=== PATIENT | female | born 1995 | race Caucasian/White ===

== ENCOUNTER 2017-03-10 15:29 | Emergency (ER) | payer MEDICAID, OTHER ==
[~2017-03-10] VITALS: Ht 152.4 cm; Wt 47.6 kg
--- OUTSIDE RECORDS SUMMARY | 2017-03-10 15:36 | XMS REPORT ---
Author Author ZACKARY MORENO [facility] eClinicalWorks Address Unknown Phone Unavailable Care Team Providers Care Machine Compositor Name Role Phone ZACKARY MORENO Unavailable Allergies No Known Allergies Problems Problem Type Condition Code Onset Dates Condition Status Problem Bipolar disorder NOS 296.7 Active Problem PTSD (Posttraumatic stress disorder) (NOS) 309.81 Active Problem ASTHMA NOS 493.90 Active Problem Acne NOS 706.1 Active Medications No Known Medications Results No Known Results Summary Purpose eClinicalWorks Submission
--- OUTSIDE RECORDS SUMMARY | 2017-03-10 15:36 | XMS REPORT ---
Author ENZO Woodward Organization eClinicalWorks Address Unknown Phone Unavailable Care Team Providers Care Plant Protection Officer Name Role Phone ENZO BLANK CP Unavailable Allergies, Adverse Reactions, Alerts Substance Reaction Event Type N.K.D.A. Info Not Available Non Drug Allergy Problems Problem Type Condition ICD-9 Code Onset Dates Condition Status Assessment Rash 782.1 Active Medications Medication Code System Code Instructions Start Date End Date Status Dosage Singulair NDC 16572 10 mg orally once a day (in the evening) 1 tab (s) naltrexone NDC 77842 50 mg orally once a day 1 tab(s) albuterol NDC 75952 2.5 mg/3 mL (0.083%) inhaled every 6 hours 3 mL Symbicort NDC 66543 80 mcg-4.5 mcg/inh inhaled 2 times a day 2 puff(s) Procedures Procedure Coding System Code Date Office Visit, new pt, Level 2 CPT-4 62289 September 02, 2014 Vital Signs Date/Time: September 02, 2014 Blood Pressure Systolic 116 mm Hg Temperature 97.9 F Weight 116 lbs Oximetry 100 % Pain Scale 0 0-10 Blood Pressure Diastolic 68 mm Hg Results No Known Results Summary Purpose eClinicalWorks Submission
--- OUTSIDE RECORDS SUMMARY | 2017-03-10 15:36 | XMS REPORT ---
Author Author ZACKARY MORENO Organization eClinicalWorks Address Unknown Phone Unavailable Care Team Providers Care Flight Agent Name Role Phone ZACKARY MORENO Unavailable Allergies No Known Allergies Problems Problem Type Condition Code Onset Dates Condition Status Problem Bipolar disorder NOS 296.7 Active Problem PTSD (Posttraumatic stress disorder) (NOS) 309.81 Active Problem ASTHMA NOS 493.90 Active Problem Acne NOS 706.1 Active Medications Medication Code System Code Instructions Start Date End Date Status Dosage Plus NDC 6472 Multivitamins with Folic Acid 1 mg orally once a day October 03, 2015 1 tab(s) Results No Known Results Summary Purpose eClinicalWorks Submission
--- OUTSIDE RECORDS SUMMARY | 2017-03-10 15:37 | XMS REPORT ---
Author Author ZACKARY MORENO [facility] [place] eClinicalWorks Address Unknown Phone Unavailable Care Team Providers Care Brass Buffer Name Role Phone ZACKARY MORENO Unavailable Allergies, Adverse Reactions, Alerts Substance Reaction Event Type latex rash Non Drug Allergy Problems Problem Type Condition Code Onset Dates Condition Status Problem Bipolar disorder NOS 296.7 Active Problem PTSD (Posttraumatic stress disorder) (NOS) 309.81 Active Problem ASTHMA NOS 493.90 Active Assessment Encounter for contraceptive management, unspecified Z30.9 Active Problem Acne NOS 706.1 Active Assessment Encounter for gynecological examination (general) (routine) with abnormal findings Z01.411 Active Medications Medication Code System Code Instructions Start Date End Date Status Dosage phenytoin NDC 27981 500 mg orally as needed every 8hrs 1 tab(s) Symbicort NDC 30882 80 mcg-4.5 mcg/inh inhaled 2 times a day 2 puff(s) Singulair NDC 66450 10 mg orally once a day (in the evening) 1 tab (s) Symbicort NDC 74359 80 mcg-4.5 mcg/inh inhaled 2 times a day 2 puff(s) Ventolin HFA NDC 04490 CFC free 90 mcg/inh inhaled as needed every 4 hrs 2 puffs Tylenol Caplet Extra Strength NDC 8541 500 mg orally every 8 hours as needed for pain September 05, 2015 2 tab(s) Refresh Tears NDC 0 OTC intraocularly 1 drop Depo-Provera Contraceptive NDC 978 150 mg/mL intramuscularly once September 150 mg loratadine NDC 28546 10 mg orally once daily 1 tablet Bactrim DS NDC 4204 800 mg-160 mg orally 2 times a day September 12, 2015 1 tab(s) fluconazole NDC 51594 150 mg orally once September 12, 2015 1 tab(s) Protonix NDC 46511 20 mg orally once a day September 05, 2015 1 tab(s) Procedures Procedure Coding System Code Date Administration fee THER/PROPH/DIAG INJ, SC/IM CPT-4 69261 September 18, 2015 Prev Med, estab pt, 18-39 yr CPT-4 34753 September 18, 2015 Depo Provera CPT-4 J1050 September 18, 2015 Vital Signs Date/Time: September 18, 2015 BMI 25.88 Index Weight 137 lbs Height 61 in Pain Scale 0 0-10 Blood Pressure Diastolic 70 mm Hg Blood Pressure Systolic 118 mm Hg Results No Known Results Summary Purpose eClinicalWorks Submission
--- OUTSIDE RECORDS SUMMARY | 2017-03-10 15:37 | XMS REPORT ---
Author Author DEEPA ENGEL Organization eClinicalWorks Address Unknown Phone Unavailable Care Team Providers Care Air Intercept Controller Name Role Phone DEEPA ENGEL CP Unavailable Allergies, Adverse Reactions, Alerts Substance Reaction Event Type N.K.D.A. Info Not Available Non Drug Allergy Problems Problem Type Condition Code Onset Dates Condition Status Assessment Hidradenitis 705.83 Active Assessment Abscess of axilla 682.3 Active Problem ASTHMA NOS 493.90 Active Medications Medication Code System Code Instructions Start Date End Date Status Dosage naltrexone NDC 02268 50 mg orally once a day 1 tab(s) albuterol NDC 19726 2.5 mg/3 mL (0.083%) inhaled every 6 hours 3 mL Ventolin HFA NDC 56186 not defined lamotrigine NDC 60005 not defined Singulair NDC 50425 10 mg orally once a day (in the evening) 1 tab (s) Symbicort NDC 15783 80 mcg-4.5 mcg/inh inhaled 2 times a day 2 puff(s) clindamycin topical NDC 59610 not defined loratadine NDC 88019 not defined Bactrim DS NDC 4204 800 mg-160 mg orally 2 times a day September 13, 2014 1 tab(s) mupirocin topical NDC 51823 2% intranasally 2 times a day September 13, 2014 1 derick Procedures Procedure Coding System Code Date Abscess I&D/Cyst Removal Complicated CPT-4 41530 September 13, 2014 Ceftriaxone (ROCEPHIN) 250mg vial CPT-4 J0696 September 13, 2014 Office Visit, estab pt, Level 3 CPT-4 13906 September 13, 2014 Administration fee THER/PROPH/DIAG INJ, SC/IM CPT-4 33686 September 13, 2014 Vital Signs Date/Time: September 13, 2014 Pain Scale 9-10 left arm pit and 7-8 right side 0-10 Temperature 98.1 F Weight 117 lbs Oximetry 99 % Results No Known Results Summary Purpose eClinicalWorks Submission
--- OUTSIDE RECORDS SUMMARY | 2017-03-10 15:37 | XMS REPORT ---
Author Author MARILY CHAPMAN [facility] eClinicalWorks Address Unknown Phone Unavailable Care Team Providers Care Lining Mechanic Name Role Phone MARILY CHAPMAN CP Unavailable Allergies, Adverse Reactions, Alerts Substance Reaction Event Type latex rash Non Drug Allergy Problems Problem Type Condition Code Onset Dates Condition Status Problem Bipolar disorder NOS 296.7 Active Problem PTSD (Posttraumatic stress disorder) (NOS) 309.81 Active Problem ASTHMA NOS 493.90 Active Problem Acne NOS 706.1 Active Assessment Hypoglycemia 251.2 Active Medications Medication Code System Code Instructions Start Date End Date Status Dosage clindamycin topical NDC 25838 1% applied topically twice daily not defined Singulair NDC 23219 10 mg orally once a day (in the evening) 1 tab (s) lamotrigine NDC 77050 100 mg orally daily at bedtime not defined Bactrim DS NDC 4204 800 mg-160 mg orally 2 times a day September 13, 2014 1 tab(s) loratadine NDC 15868 10 mg orally once daily not defined Ventolin HFA NDC 86527 CFC free 90 mcg/inh inhaled as needed every 4 hrs 2 puffs albuterol NDC 51561 2.5 mg/3 mL (0.083%) inhaled every 6 hours 3 mL naltrexone NDC 22783 50 mg orally 2 times a day 1 tab(s) mupirocin topical NDC 83102 2% intranasally 2 times a day September 13, 2014 1 derick Symbicort NDC 49120 80 mcg-4.5 mcg/inh inhaled 2 times a day 2 puff(s) amphetamine-dextroamphetamine NDC 49718 15 mg orally twice daily 1 tab(s) Procedures Procedure Coding System Code Date Glucose blood test (glucometer) CPT-4 83712 September 17, 2014 Office Visit, estab pt, Level 4 CPT-4 62009 September 17, 2014 CAPILLARY BLOOD DRAW CPT-4 61194 September 17, 2014 Vital Signs Date/Time: September 17, 2014 BMI 21.73 Index Weight 115 lbs Height 61.0in no shoes in Pain Scale 3 bilateral ankles 0-10 Blood Pressure Diastolic 62 mm Hg Blood Pressure Systolic 102 mm Hg Results No Known Results Summary Purpose eClinicalWorks Submission
--- OUTSIDE RECORDS SUMMARY | 2017-03-10 15:37 | XMS REPORT ---
Author Author APARNA VALVERDE [facility] eClinicalWorks Address Unknown Phone Unavailable Care Team Providers Care Ice Resurfacing Machine Operators Name Role Phone APARNA VALVERDE CP Unavailable Allergies No Known Allergies Problems Problem Type Condition Code Onset Dates Condition Status Problem Bipolar disorder NOS 296.7 Active Problem PTSD (Posttraumatic stress disorder) (NOS) 309.81 Active Problem ASTHMA NOS 493.90 Active Problem Acne NOS 706.1 Active Medications No Known Medications Results No Known Results Summary Purpose eClinicalWorks Submission
--- OUTSIDE RECORDS SUMMARY | 2017-03-10 15:37 | XMS REPORT ---
Author Author ZACKARY MORENO [facility] eClinicalWorks Address Unknown Phone Unavailable Care Team Providers Care Master [place] Name Role Phone ZACKARY MORENO Unavailable Allergies, Adverse Reactions, Alerts Substance Reaction Event Type citric acid anaphylaxis Non Drug Allergy latex rash Non Drug Allergy Problems Problem Type Condition Code Onset Dates Condition Status Assessment Unspecified convulsions R56.9 Active Problem Bipolar disorder NOS 296.7 Active Problem PTSD (Posttraumatic stress disorder) (NOS) 309.81 Active Problem ASTHMA NOS 493.90 Active Assessment Encounter for test, result positive Z32.01 Active Assessment Nausea with vomiting, unspecified R11.2 Active Problem Acne NOS 706.1 Active Assessment Right lower quadrant pain R10.31 Active Medications Medication Code System Code Instructions Start Date End Date Status Dosage lamotrigine NDC 54421 100 mg orally daily at bedtime not defined Singulair NDC 76470 10 mg orally once a day (in the evening) 1 tab (s) loratadine NDC 57943 10 mg orally once daily 1 tablet Dilantin NDC 3233 100 mg orally once a day (at bedtime) 3 cap(s) Protonix NDC 07647 20 mg orally once a day September 05, 2015 1 tab(s) Refresh Tears NDC 0 OTC intraocularly 1 drop Ventolin HFA NDC 38665 CFC free 90 mcg/inh inhaled as needed every 4 hrs 2 puffs amphetamine-dextroamphetamine NDC 82660 15 mg orally twice daily 1 tab(s) Lamictal NDC 1506 100 mg orally 1 time a day 1 tab(s) phenytoin NDC 06487 500 mg orally as needed every 8hrs 1 tab(s) naltrexone NDC 53083 50 mg orally 2 times a day 1 tab(s) Tylenol Caplet Extra Strength NDC 8541 500 mg orally every 8 hours as needed for pain September 05, 2015 2 tab(s) albuterol NDC 30389 2.5 mg/3 mL (0.083%) inhaled every 6 hours 3 mL Symbicort NDC 94998 80 mcg-4.5 mcg/inh inhaled 2 times a day 2 puff(s) Depo-Provera Contraceptive NDC 978 150 mg/mL intramuscularly once September 150 mg Bactrim DS NDC 4204 800 mg-160 mg orally 2 times a day September 12, 2015 1 tab(s) Procedures Procedure Coding System Code Date Office Visit, estab pt, Level 3 CPT-4 09207 October 02, 2015 Beta HCG Urine test CPT-4 75101 October 02, 2015 Vital Signs Date/Time: October 02, 2015 BMI 26.26 Index Weight 139 lbs Height 61 in Pain Scale 0 0-10 Blood Pressure Diastolic 70 mm Hg Blood Pressure Systolic 98 mm Hg Temperature 98.8 F Oximetry 98 % Results No Known Results Summary Purpose eClinicalWorks Submission
--- OUTSIDE RECORDS SUMMARY | 2017-03-10 15:39 | XMS REPORT | Continuity of Care Document ---
Author Author [facility] Address Unknown Phone Unavailable Allergies Active Description Code Type Severity Reaction Onset Reported/Identified Relationship to Patient Clinical Status Yes No Known Allergies No Known Allergies Drug Allergy Unknown N/A 07/16/2011 Yes LATEX 83268 DRUG INGREDI N/A Hives 07/28/2014 Yes POTASSIUM CITRATE 78639 DRUG INGREDI N/A Hives 07/28/2014 07/28/2014 Yes LATEX 64137 DRUG INGREDI N/A Hives 07/28/2014 Yes POTASSIUM CITRATE 89267 DRUG INGREDI N/A Hives 07/28/2014 Yes FOSPHENYTOIN 41487 DRUG INGREDI N/A Other 08/08/2015 08/08/2015 Yes FOSPHENYTOIN 17726 DRUG INGREDI N/A Other 08/08/2015 Yes LACTOSE 99715 DRUG INGREDI~Food N/A Other 01/19/2017 01/19/2017 Medications Medication Packaging Start Date Stop Date Route Dosage Sig SODIUM CHLORIDE 0.9 % IV BOLUS 05/22/2015 05/23/2015 Intravenous 1000 BOLUS IPRATROPIUM-ALBUTEROL 0.5-2.5 (3) MG/3ML IN SOLN 05/22/2015 Nebulization 3 ONCE SODIUM CHLORIDE 0.9 % IV BOLUS 05/24/2015 05/24/2015 Intravenous 1000 BOLUS FENTANYL 10MCG/ML INFUSION FOR OMNI 08/04/2015 Intravenous 25 CONTINUOUS ROCURONIUM BROMIDE 50 MG/5ML IV SOLN 08/04/2015 Intravenous 50 ONCE SODIUM CHLORIDE 0.9 % IV BOLUS 08/04/2015 08/05/2015 Intravenous 1000 BOLUS VECURONIUM BROMIDE 10 MG IV SOLR 08/04/2015 Intravenous 10 ONCE [id number] PERTUSSIS 5-2-15.5 LF-MCG/0.5 IM SUSP 08/04/2015 Intramuscular 0.5 ONCE FAMOTIDINE IN NACL 20-0.9 MG/50ML-% IV SOLN 08/04/2015 Intravenous 20 2 TIMES DAILY SODIUM CHLORIDE 0.9 % IV SOLN 08/04/2015 Intravenous CONTINUOUS BUDESONIDE-FORMOTEROL FUMARATE 80-4.5 MCG/ACT IN AERO 08/04/2015 Inhalation 2 2 TIMES DAILY ONDANSETRON HCL 4 MG/2ML IJ SOLN 08/05/2015 Intravenous 4 EVERY 6 HOURS PRN BENZOCAINE-MENTHOL 15-3.6 MG MT LOZG 08/05/2015 Mouth/Throat 1 EVERY 1 HOUR PRN NICOTINE 21 MG/24HR TD PT24 08/05/2015 Transdermal 1 DAILY PHENYTOIN SODIUM EXTENDED 100 MG PO CAPS 08/05/2015 Oral 100 3 TIMES DAILY ACETAMINOPHEN 325 MG PO TABS 08/05/2015 Oral 650 EVERY 6 HOURS PRN PHENOL 1.4 % MT LIQD 08/05/2015 Mouth/ Throat 1 PRN OLANZAPINE 5 MG PO TBDP 08/06/2015 Sublingual 5 ONCE FAMOTIDINE 20 MG PO TABS 08/06/2015 Oral 20 2 TIMES DAILY IBUPROFEN 400 MG PO TABS 08/06/2015 Oral 400 ONCE VITAMIN B-1 100 MG PO TABS 08/07/2015 Oral 100 DAILY ACETAMINOPHEN 325 MG PO TABS 08/08/2015 Oral 650 ONCE ALBUTEROL SULFATE (2.5 MG/3ML) 0.083% IN [facility] 08/08/2015 Inhalation 2.5 ONCE DIPHENHYDRAMINE HCL 50 MG/ML [facility] 08/08/2015 Intravenous 50 ONCE FAMOTIDINE IN NACL 20-0.9 MG/50ML-% IV SOLN 08/08/2015 Intravenous 20 ONCE ALBUTEROL SULFATE (2.5 MG/3ML) 0.083% IN [facility] 08/08/2015 Inhalation 2.5 ONCE ONDANSETRON HCL 4 MG/2ML [facility] 08/25/2015 Intravenous 4 ONCE SODIUM CHLORIDE 0.9 % IV BOLUS 08/25/2015 08/26/2015 Intravenous 1000 BOLUS IOHEXOL 350 MG/ML IV SOLN 08/25/2015 Intravenous 100 ONCE KETOROLAC TROMETHAMINE 30 MG/ML IJ SOLN 08/25/20152015 Intravenous 30 ONCE MECLIZINE HCL 25 MG PO TABS 10/21/2015 Oral 50 ONCE METOCLOPRAMIDE HCL 10 MG PO TABS 10/21/2015 Oral 10 ONCE CEPHALEXIN 250 MG PO CAPS 11/10/2015 Oral 500 ONCE ONDANSETRON HCL 4 MG/2ML IJ SOLN 04/12/2016 Intravenous 8 ONCE LACTATED RINGERS IV BOLUS 04/12/2016 04/13/2016 Intravenous 1000 BOLUS ONDANSETRON HCL 4 MG/2ML IJ SOLN 04/12/2016 Intravenous 4 EVERY 6 HOURS PRN ONDANSETRON 4 MG PO TBDP 04/12/2016 Oral 4 EVERY 6 HOURS PRN ACETAMINOPHEN 325 MG PO TABS 04/12/2016 Oral 650 EVERY 4 HOURS PRN SODIUM CHLORIDE 0.9 % IV SOLN 04/12/2016 Intravenous CONTINUOUS INFLUENZA VAC SPLIT QUAD 0.5 ML IM OMKAR 04/13/2016 Intramuscular 0.5 Prior to discharge PANTOPRAZOLE SODIUM 40 MG PO TBEC 04/13/2016 Oral 40 EVERY MORNING BEFORE BREAKFAST PLUS 27-1 MG PO TABS 04/13/2016 Oral 1 DAILY OXYTOCIN 30 UNITS IN LR 1000 ML OMNICELL 05/16/2016 Intravenous 30 ONCE PRN TERBUTALINE SULFATE 1 MG/ML IJ SOLN 05/16/2016 Subcutaneous 0.25 ONCE PRN ALUM T MAG HYDROXIDE-SIMETH 200-200-20 MG/5ML PO SUSP 05/16/2016 Oral 30 EVERY 4 HOURS PRN ENEMA 7-19 GM/118ML RE ENEM 05/16/2016 Rectal ONCE PRN LACTATED RINGERS IV SOLN 05/16/2016 Intravenous 500 CONTINUOUS TERBUTALINE SULFATE 1 MG/ML IJ SOLN 05/16/2016 Subcutaneous 0.25 ONCE PRN CALCIUM CARBONATE ANTACID 500 MG PO CHEW 05/16/2016 Oral 1000 3 TIMES DAILY PRN ACETAMINOPHEN 325 MG PO TABS 05/16/2016 Oral 650 EVERY 4 HOURS PRN MISOPROSTOL 25 MCG PO SPLIT TABLET 05/16/2016 Cervical 25 EVERY 4 HOURS NALOXONE HCL 0.4 MG/ML IJ SOLN 05/17/2016 Intravenous 0.1 PRN PROMETHAZINE HCL 25 MG RE SUPP 05/17/2016 Rectal 25 EVERY 6 HOURS PRN METOCLOPRAMIDE HCL 5 MG/ML IJ SOLN 05/17/2016 Intravenous 10 EVERY 3 HOURS PRN DIPHENHYDRAMINE HCL 50 MG/ML IJ SOLN 05/17/2016 Intravenous 25 EVERY 6 HOURS PRN DIPHENHYDRAMINE HCL 25 MG PO CAPS 05/17/2016 Oral 25 EVERY 6 HOURS PRN HEMORRHOIDAL HYGIENE 50 % EX PAD 05/17/2016 Topical PRN PRAMOXINE HCL 1 % RE FOAM 05/17/2016 Rectal EVERY 6 HOURS PRN ONDANSETRON HCL 4 MG/2ML IJ SOLN 05/17/2016 Intravenous 4 EVERY 6 HOURS PRN DIPHENHYDRAMINE HCL 50 MG/ML IJ SOLN 05/17/2016 Intravenous 25 EVERY 6 HOURS PRN HYDROCORTISONE ACETATE 25 MG RE SUPP 05/17/2016 Rectal 25 EVERY 8 HOURS PRN IBUPROFEN 400 MG PO TABS 05/17/2016 Oral 400 EVERY 4 HOURS PRN ACETAMINOPHEN 325 MG PO TABS 05/17/2016 Oral 650 EVERY 4 HOURS PRN ONDANSETRON 4 MG PO TBDP 05/17/2016 Oral 4 EVERY 6 HOURS PRN DIPHENHYDRAMINE HCL 25 MG PO CAPS 05/17/2016 Oral 25 EVERY 6 HOURS PRN PRAMOXINE-HC 1-1 % EX FOAM 05/17/2016 Topical PRN OXYTOCIN 30 UNITS IN LR 1000 ML OMNICELL 05/17/2016 Intraven[address] MALONE NIPPLE OINTMENT 05/17/2016 Topical PRN LANOLIN EX OINT 05/17/2016 Topical PRN [id number] PERTUSSIS 5-2-15.5 LF-MCG/0.5 IM SUSP 05/17/2016 Intramuscular 0.5 Prior to discharge ENEMA 7-19 GM/118ML RE ENEM 05/17/2016 Rectal DAILY PRN MAGNESIUM HYDROXIDE 400 MG/5ML PO SUSP 05/17/2016 Oral 30 DAILY PRN MEASLES, MUMPS T RUBELLA VAC SC INJ 05/17/2016 Subcutaneous 0.5 Prior to discharge METHYLERGONOVINE MALEATE 0.2 MG/ML IJ SOLN 05/17/2016 Intramuscular 200 ONCE FERROUS SULFATE 325 (65 FE) MG PO TABS 05/17/2016 Oral 325 2 TIMES DAILY WITH MEALS DOCUSATE SODIUM 100 MG PO CAPS 05/17/2016 Oral 100 2 TIMES DAILY LAMOTRIGINE 25 MG PO TABS 05/18/2016 Oral 25 2 TIMES DAILY ETONOGESTREL 68 MG SC IMPL 07/08/2016 Subcutaneous 1 CONTINUOUS LAMOTRIGINE 25 MG PO TABS 01/18/2017 Oral 25 DAILY NICOTINE POLACRILEX 2 MG MT GUM 01/18/2017 Oral 2 EVERY 1 HOUR PRN NICOTINE POLACRILEX 2 MG MT LOZG 01/18/2017 Oral 2 EVERY 1 HOUR PRN ALUM T MAG HYDROXIDE-SIMETH 200-200-20 MG/5ML PO SUSP 01/18/2017 Oral 30 4 TIMES DAILY PRN ALBUTEROL SULFATE HFA 108 (90 BASE) MCG/ACT IN AERS 01/18/2017 Inhalation 2 EVERY 4 HOURS PRN TRAZODONE HCL 100 MG PO TABS 01/18/2017 Oral 100 BEDTIME PRN OLANZAPINE 10 MG PO TBDP 01/18/2017 Oral 10 2 TIMES DAILY PRN ACETAMINOPHEN 325 MG PO TABS 01/18/2017 Oral 650 EVERY 6 HOURS PRN MAGNESIUM HYDROXIDE 400 MG/5ML PO SUSP 01/18/2017 Oral 30 DAILY PRN NICOTINE 21 MG/24HR TD PT24 01/18/2017 Transdermal 1 DAILY CITALOPRAM HYDROBROMIDE 10 MG PO TABS 01/19/2017 Oral 10 DAILY LAMOTRIGINE 25 MG PO TABS 01/19/2017 Oral 25 BEDTIME CITALOPRAM HYDROBROMIDE 10 MG PO TABS 01/20/2017 Oral 10 ONCE CITALOPRAM HYDROBROMIDE 20 MG PO TABS 01/21/2017 Oral 20 DAILY Problems Date Dx Coded Attending Type Code Diagnosis Diagnosed By 03/15/2013 STEVE SPENCER MD 287.5 THROMBOCYTOPENIA UNSPECIFIED 03/15/2013 STEVE SPENCER MD V20.2 WELL CHILD 03/15/2013 POOJA EASTMAN 287.5 THROMBOCYTOPENIA UNSPECIFIED 03/15/2013 POOJA EASTMAN V20.2 WELL CHILD 03/15/2013 DAYTAN 287.5 THROMBOCYTOPENIA UNSPECIFIED 03/15/2013 DAYTAN V20.2 WELL CHILD 08/16/2013 POOJA EASTMAN 309.24 ADJUSTMENT DISORDER WITH ANXIETY 08/16/2013 POOJA EASTMAN 626.2 EXCESSIVE OR FREQUENT MENSTRUATION 08/16/2013 DAYTAN 309.24 ADJUSTMENT DISORDER WITH ANXIETY 08/16/2013 DAYTAN 626.2 EXCESSIVE OR FREQUENT MENSTRUATION 07/29/2014 V 703782 Tremors RADHA DELANEY 07/29/2014 V 276.8 Hypopotassemia RADHA DELANEY 07/29/2014 A 781.0 Abnormal involuntary movements(781.0) RADHA DELANEY 02/26/2015 V Other 02/26/2015 V 599.0 Urinary tract infection, site not specified 05/22/2015 EFFIE GERONIMO V 404050 Altered Mental Status 05/22/2015 EFFIE GERONIMO V 754409 Altered Mental Status EFFIE GERONIMO 05/22/2015 GRAZYNA, EFFIE L V 644359 Altered Mental Status GRAZYNA , EFFIE L 05/22/2015 GRAZYNA, EFFIE L V 738464 Altered Mental Status GRAZYNA , EFFIE L 05/22/2015 GRAZYNA, EFFIE L V 138592 Altered Mental Status GRAZYNA , EFFIE L 05/22/2015 GRAZYNA, EFFIE L V 291987 Altered Mental Status GRAZYNA , EFFIE L 05/22/2015 GRAZYNA, EFFIE L V 777687 Altered Mental Status GRAZYNA , EFFIE L 05/22/2015 GRAZYNA, EFFIE L V 023089 Altered Mental Status GRAZYNA , EFFIE L 05/23/2015 GRAZYNA, EFFIE L V 817249 Altered Mental Status GRAZYNA , EFFIE L 05/23/2015 GRAZYNA, EFFIE L V E86.0 Dehydration GRAZYNA, EFFIE L 05/23/2015 GRAZYNA, EFFIE L V F17.200 Nicotine dependence, unspecified, uncomplicated GRAZYNA, EFFIE L 05/23/2015 GRAZYNA, EFFIE L V F19.10 Other psychoactive substance abuse, uncomplicated GRAZYNA, EFFIE L 05/23/2015 GRAZYNA, EFFIE L V 469026 Altered Mental Status GRAZYNA , EFFIE L 05/23/2015 GRAZYNA, EFFIE L V 450693 Altered Mental Status GRAZYNA , EFFIE L 05/23/2015 GRAZYNA, EFFIE L V 204263 Altered Mental Status GRAZYNA , EFFIE L 05/23/2015 GRAZYNA, EFFIE L V E86.0 Dehydration GRAZYNA, EFFIE L 05/23/2015 GRAZYNA, EFFIE L V F17.200 Nicotine dependence, unspecified, uncomplicated GRAZYNA, EFFIE L 05/23/2015 GRAZYNA, EFFIE L V F19.10 Other psychoactive substance abuse, uncomplicated GRAZYNA, EFFIE L 05/24/2015 GRAZYNA, EFFIE L V 509999 Dizziness GRAZYNA, EFFIE L 05/24/2015 GRAZYNA, EFFIE L V G40.909 Epilepsy, unspecified, not intractable, without status epilepticus GRAZYNA, EFFIE L 05/24/2015 GRAZYNA, EFFIE L V R11.2 Nausea with vomiting, unspecified GRAZYNA, EFFIE L 05/24/2015 GRAZYNA, EFFIE L V R19.7 Diarrhea, unspecified GRAZYNA, EFFIE L 05/24/2015 GRAZYNA, EFFIE L V R56.9 Unspecified convulsions GRAZYNA , EFFIE L 05/24/2015 GRAZYNA, EFFIE L V Z91.19 Patient's noncompliance with other medical treatment and regimen GRAZYNA, EFFIE L 05/24/2015 SHAKIRA CHRISTINE K52.9 Noninfective gastroenteritis and colitis, unspecified 05/24/2015 SHAKIRA CHRISTINE R56.9 Unspecified convulsions 05/24/2015 GRAZYNA, EFFIE L V 848988 Dizziness 05/24/2015 GRAZYNA, EFFIE L V 152568 Dizziness GRAZYNA, EFFIE L 05/24/2015 GRAZYNA, EFFIE L V 695790 Dizziness GRAZYNA, EFFIE L 05/24/2015 GRAZYNA, EFFIE L V 857631 Dizziness GRAZYNA, EFFIE L 05/24/2015 GRAZYNA, EFFIE L V 570115 Dizziness GRAZYNA, EFFIE L 05/24/2015 GRAZYNA, EFFIE L V 384168 Dizziness GRAZYNA, EFFIE L 05/24/2015 GRAZYNA, EFFIE L V G40.909 Epilepsy, unspecified, not intractable, without status epilepticus GRAZYNA, EFFIE L 05/24/2015 GRAZYNA, EFFIE L V R11.2 Nausea with vomiting, unspecified GRAZYNA, EFFIE L 05/24/2015 GRAZYNA, EFFIE L V R19.7 Diarrhea, unspecified GRAZYNA, EFFIE L 05/24/2015 GRAZYNA, EFFIE L V R56.9 Unspecified convulsions GRAZYNA , EFFIE L 05/24/2015 GRAZYNA, EFFIE L V Z91.19 Patient's noncompliance with other medical treatment and regimen GRAZYNA, EFFIE L 05/24/2015 GRAZYNA, EFFIE L V 789164 Dizziness GRAZYNA, EFFIE L 05/24/2015 GRAZYNA, EFFIE L V G40.909 Epilepsy, unspecified, not intractable, without status epilepticus GRAZYNA, EFFIE L 05/24/2015 GRAZYNA, EFFIE L V R11.2 Nausea with vomiting, unspecified GRAZYNA, EFFIE L 05/24/2015 GRAZYNA, EFFIE L V R19.7 Diarrhea, unspecified GRAZYNA, EFFIE L 05/24/2015 GRAZYNA, EFFIE L V R56.9 Unspecified convulsions GRAZYNA , EFFIE L 05/24/2015 EFFIE GERONIMO V Z91.19 Patient's noncompliance with other medical treatment and regimen EFFIE GERONIMO 05/24/2015 EMMETT, SHAKIRA Wood A 97 Seizures 05/24/2015 EMMETT, SHAKIRA Wood A 97 Seizures 05/24/2015 EMMETT, SHAKIRA Wood A 97 Seizures 05/24/2015 EMMETT, RENE A 97 Seizures 05/24/2015 EMMETT, SHAKIRA Wood A 97 Seizures 05/24/2015 EMMETT, SHAKIRA Wood A K52.9 Noninfective gastroenteritis and colitis, unspecified 05/24/2015 EMMETTSHAKIRA A R56.9 Unspecified convulsions 05/24/2015 EMMETTSHAKIRA A K52.9 Noninfective gastroenteritis and colitis, unspecified 05/24/2015 EMMETT, SHAKIRA Wood A R56.9 Unspecified convulsions 05/24/2015 EMMETTSHAKIRA A K52.9 Noninfective gastroenteritis and colitis, unspecified 05/24/2015 EMMETTSHAKIRA A R56.9 Unspecified convulsions 05/24/2015 EMMETT, SHAKIRA Wood A K52.9 Noninfective gastroenteritis and colitis, unspecified 05/24/2015 EMMETT, SHAKIRA Wood A R56.9 Unspecified convulsions 05/24/2015 SHAKIRA CHRISTINE A K52.9 Noninfective gastroenteritis and colitis, unspecified 05/24/2015 SHAKIRA CHRISTINE A R56.9 Unspecified convulsions 05/27/2015 V 599.0 Urinary tract infection, site not specified 05/27/2015 V 599.0 Urinary tract infection, site not specified 06/17/2015 CARLO LANDRY 97 Seizures 06/17/2015 CARLO LANDRY 97 Seizures 06/17/2015 CARLO LANDRY 97 Seizures 06/17/2015 CARLO LANDRY 97 Seizures 06/18/2015 CARLO LANDRY 97 Seizures 06/18/2015 CARLO LANDRY 97 Seizures 06/18/2015 CARLO LANDRY 97 Seizures 06/18/2015 CARLO LANDRY F15.10 Other stimulant abuse, uncomplicated 06/18/2015 CARLO LANDRY G40.909 Epilepsy, unspecified, not intractable, without status epilepticus 06/18/2015 CARLO LANDRY R78.89 Finding of other specified substances, not normally found in blood 06/18/2015 CARLO LANDRY F15.10 Other stimulant abuse, uncomplicated 06/18/2015 CARLO LANDRY G40.909 Epilepsy, unspecified, not intractable, without status epilepticus 06/18/2015 CARLO LANDRY R78.89 Finding of other specified substances, not normally found in blood 06/18/2015 CARLO LANDRY F15.10 Other stimulant abuse, uncomplicated 06/18/2015 CARLO LANDRY G40.909 Epilepsy, unspecified, not intractable, without status epilepticus 06/18/2015 CARLO LANDRY R78.89 Finding of other specified substances, not normally found in blood 06/18/2015 CARLO LANDRY F15.10 Other stimulant abuse, uncomplicated 06/18/2015 CARLO LANDRY G40.909 Epilepsy, unspecified, not intractable, without status epilepticus 06/18/2015 CARLO LANDRY R78.89 Finding of other specified substances, not normally found in blood 07/01/2015 CRESCENCIO MARININA T A 804523 Drug Withdrawal 07/01/2015 TANIA GIOVANI T A 167841 Drug Withdrawal 07/01/2015 TANIA GIOVANI T A 736643 Drug Withdrawal 07/01/2015 CRESCENCIO MARININA T A F15.10 Other stimulant abuse, uncomplicated 07/01/2015 CRESCENCIO MARININA T A M79.641 Pain in right hand 07/01/2015 CRESCENCIO MARININA T A R56.9 Unspecified convulsions 07/01/2015 CRESCENCIO MARININA T A F15.10 Other stimulant abuse, uncomplicated 07/01/2015 TANIA GIOVANI T A M79.641 Pain in right hand 07/01/2015 CRESCENCIO MARININA T A R56.9 Unspecified convulsions 07/01/2015 CRESCENCIO MARININA T A F15.10 Other stimulant abuse, uncomplicated 07/01/2015 TANIA GIOVANI T A M79.641 Pain in right hand 07/01/2015 CRESCENCIO MARININA T A R56.9 Unspecified convulsions 07/01/2015 CRESCENCIO MARININA T A F15.10 Other stimulant abuse, uncomplicated 07/01/2015 GIOVANI MARIN A M79.641 Pain in right hand 07/01/2015 GIOVANI MARIN A R56.9 Unspecified convulsions 07/01/2015 GIOVANI MARIN A F15.10 Other stimulant abuse, uncomplicated 07/01/2015 GIOVANI MARIN A M79.641 Pain in right hand 07/01/2015 GIOVANI MARIN T A R56.9 Unspecified convulsions 07/05/2015 ANNIE GUAJARDO 97 Seizures 07/05/2015 ANNIE GUAJARDO 97 Seizures 07/05/2015 ANNIE GUAJARDO 97 Seizures 07/05/2015 ANNIE GUAJARDO 97 Seizures 07/05/2015 ANNIE GUAJARDO 97 Seizures 07/05/2015 ANNIE GUAJARDO 97 Seizures 07/05/2015 ANNIE GUAJARDO 97 Seizures 07/05/2015 ANNIE GUAJARDO 97 Seizures 07/05/2015 ANNIE GUAJARDO 97 Seizures 07/05/2015 ANNIE GUAJARDO G40.909 Epilepsy, unspecified, not intractable, without status epilepticus 07/05/2015 ANNIE GUAJARDO Z51.81 Encounter for therapeutic drug level monitoring 07/16/2015 CHARIS QUARLES 673888 Altered Mental Status 07/16/2015 CHARIS QUARLES 173235 Altered Mental Status 07/17/2015 CHARIS QUARLES R56.9 Unspecified convulsions 07/17/2015 CHARIS QUARLES Z91.14 Patient's other noncompliance with medication regimen 07/17/2015 CHARIS QUARLES 668070 Altered Mental Status 07/17/2015 CHARIS QUARLES 768412 Altered Mental Status 07/17/2015 CHARIS QUARLES 024199 Altered Mental Status 07/17/2015 CHARIS QUARLES R56.9 Unspecified convulsions 07/17/2015 CHARIS QUARLES Z91.14 Patient's other noncompliance with medication regimen 07/17/2015 CHARIS QUARLES R56.9 Unspecified convulsions 07/17/2015 CHARIS QUARLES Z91.14 Patient's other noncompliance with medication regimen 08/06/2015 CADORNA, ABNER A V 611198 Altered Mental Status CADORNA, ABNER A 08/06/2015 CADORNA, ABNER A V F10.120 Alcohol abuse with intoxication, uncomplicated CADORNA, ABNER A 08/06/2015 CADORNA, ABNER A V F19.10 Other psychoactive substance abuse, uncomplicated CADORNA, ABNER A 08/06/2015 CADORNA, ABNER A P G93.40 Encephalopathy, unspecified CADORNA, ABNER A 08/06/2015 CADORNA, ABNER A V J96.01 Acute respiratory failure with hypoxia CADORNA, ABNER A 08/06/2015 CADORNA, ABNER A V S01.81XA Laceration without foreign body of other part of head, initial encounter CADORNA, ABNER A 08/06/2015 CADORNA, ABNER A V S09.90XA Unspecified injury of head, initial encounter CADORNA, ABNER A 08/06/2015 CADORNA, ABNER A A T50.901A Poisoning by unspecified drugs, medicaments and biological substances, accidental (unintentional), initial encounter CADORNA, ABNER A 08/06/2015 CADORNA, ABNER A V T50.902A Poisoning by unspecified drugs, medicaments and biological substances, intentional self-harm, initial encounter CADORNA, ABNER A 08/08/2015 JASMINE, EKWENSI A V 97 Seizures JASMINE, EKWENSI A 08/08/2015 JASMINE, EKWENSI A V G40.909 Epilepsy, unspecified, not intractable, without status epilepticus JASMINE, EKWENSI A 08/08/2015 JASMINE, EKWENSI A V J02.9 Acute pharyngitis, unspecified JASMINE, EKWENSI A 08/08/2015 JASMINE, EKWENSI A V R05 Cough KENROY, EKWENSI A 08/25/2015 LEIA RITCHIE V 892092 Abdominal Pain LEIA RITCHIE Josie 08/25/2015 JOE RITCHIENITA Ordonez R10.11 Right upper quadrant pain LEIA RITCHIE Josie 08/25/2015 KAYLENEYOAV LEIANITA Ordonez S30.1XXA Contusion of abdominal wall, initial encounter LEIA RITCHIE 09/08/2015 ZACKARY MORENO Z79.899 Other nursing home (current) drug therapy 09/21/2015 AYAD, Amirah ТАТЬЯНА V 727678 Fall AYAD, P ТАТЬЯНА 09/21/2015 AYAD, P ТАТЬЯНА V S16.1XXA Strain of muscle, fascia and tendon at neck level, initial encounter Amirah LION 10/02/2015 ZACKARY MORENO Z32.01 Encounter for test, result positive 10/21/2015 ALFREDA BUSBY V 367432 Dizziness BUSBY, ALFREDA 10/21/2015 ALFREDA BUSBY V R42 Dizziness and giddiness BUSBY, ALFREDA 10/21/2015 ALFREDA BUSBY V Z33.1 state, incidental BUSBY, ALFREDA 11/10/2015 EMMIE MARTINEZ V 537056 Insect Bite EMMIE MARTINEZ 11/10/2015 EMMIE MARTINEZ V T63.304A Toxic effect of unspecified spider venom , undetermined, initial encounter EMMIE MARTINEZ 11/26/2015 ZACKARY MORENO R30.0 Dysuria 01/14/2016 Shai WALKER V 293832 Abdominal Pain BONEFLACO, Shai LO 03/24/2016 Shai WALKER V 917753 Abdominal Pain BONEBRACARLOS, Shai LO 04/13/2016 Shai WALKER V 629715 Dizziness Shai WALKER 04/13/2016 Shai WAKLER Z33.1 state, incidental Shai WALKER 04/24/2016 Shai WALKER V 846173 Abdominal Cramping AARON, Shai LO 04/24/2016 Shai WALKER V 895107 Abdominal Pain BONEFLACO, Shai LO 05/03/2016 Shai WALKER V 823330 Decreased Movement Shai WALKER 12/01/2016 ADMITTING 152689 Insect Bite 01/20/2017 KIRIT LANDEROS V 982643 Psychiatric Evaluation KIRIT LANDEROS 01/20/2017 KIRIT LANDEROS A F32.9 Major depressive disorder, single episode, unspecified TERESSAEDISONEugenieKIRIT 01/20/2017 TIGRE KIRIT P F33.2 Major depressive disorder, recurrent severe without psychotic features (HCC) KIRIT LANDEROS Procedures Code Description Performed By Performed On HOU243 URINE CULTURE [id number] URINE CULTURE [id number] URINE CULTURE 12LEKG 12 LEAD EKG ALC ALCOHOL 06/18/2015 CBC CBC WITH DIFF 06/18 CMETPP COMPREHENSIVE METABOLIC PANEL 06/18/2015 DGABU DRUG SCREEN URINE 06/18/2015 PHENY PHENYTOIN LEVEL 06/18/2015 UA URINALYSIS AUTOMATED W MICROSCOPY 06/18/2015 12LEKG 12 LEAD EKG ALC ALCOHOL 06/18/2015 CBC CBC WITH DIFF 06/18 CMETPP COMPREHENSIVE METABOLIC PANEL 06/18/2015 DGABU DRUG SCREEN URINE 06/18/2015 PHENY PHENYTOIN LEVEL 06/18/2015 UA URINALYSIS AUTOMATED W MICROSCOPY 06/18/2015 12LEKG 12 LEAD EKG ALC ALCOHOL 06/18/2015 CBC CBC WITH DIFF 06/18 CMETPP COMPREHENSIVE METABOLIC PANEL 06/18/2015 DGABU DRUG SCREEN URINE 06/18/2015 PHENY PHENYTOIN LEVEL 06/18/2015 UA URINALYSIS AUTOMATED W MICROSCOPY 06/18/2015 12LEKG 12 LEAD EKG ALC ALCOHOL 06/18/2015 CBC CBC WITH DIFF 06/18 CMETPP COMPREHENSIVE METABOLIC PANEL 06/18/[address] HEAD WO CONTRAST 06/18/2015 DGABU DRUG SCREEN URINE 06/18/2015 PHENY PHENYTOIN LEVEL 06/18/2015 UA URINALYSIS AUTOMATED W MICROSCOPY 06/18/2015 12LEKG 12 LEAD EKG ALC ALCOHOL 06/18/2015 CBC CBC WITH DIFF 06/18 CMETPP COMPREHENSIVE METABOLIC PANEL 06/18/[address] HEAD WO CONTRAST 06/18/2015 DGABU DRUG SCREEN URINE 06/18/2015 PHENY PHENYTOIN LEVEL 06/18/2015 UA URINALYSIS AUTOMATED W MICROSCOPY 06/18/2015 12LEKG 12 LEAD EKG ALC ALCOHOL 06/18/2015 CBC CBC WITH DIFF 06/18 CMETPP COMPREHENSIVE METABOLIC PANEL 06/18/[address] HEAD WO CONTRAST 06/18/2015 DGABU DRUG SCREEN URINE 06/18/2015 PHENY PHENYTOIN LEVEL 06/18/2015 UA URINALYSIS AUTOMATED W MICROSCOPY 06/18/2015 12LEKG 12 LEAD EKG ALC ALCOHOL 06/18/2015 CBC CBC WITH DIFF 06/18 CMETPP COMPREHENSIVE METABOLIC PANEL 06/18/[address] HEAD WO CONTRAST 06/18/2015 [facility] DRUG SCREEN URINE 06/18/2015 PHENY PHENYTOIN LEVEL 06/18/2015 UA URINALYSIS AUTOMATED W MICROSCOPY 06/18/2015 XRHAND XR HAND UNILATERAL 3 VIEWS 07/01/2015 XRHAND XR HAND UNILATERAL 3 VIEWS 07/01/2015 XRHAND XR HAND UNILATERAL 3 VIEWS 07/01/2015 XRHAND XR HAND UNILATERAL 3 VIEWS 07/01/2015 XRHAND XR HAND UNILATERAL 3 VIEWS 07/01/2015 PHENY PHENYTOIN LEVEL 07/05/2015 CK CREATINE KINASE ISBMET BASIC METABOLIC PANEL POCT 07/05/2015 PHENY PHENYTOIN LEVEL 07/05/2015 PREGP POC URINE TEST, QUAL 07/05/2015 [facility] URINALYSIS POC CK CREATINE KINASE ISBMET BASIC METABOLIC PANEL POCT 07/05/2015 PHENY PHENYTOIN LEVEL 07/05/2015 PREGP POC URINE TEST, QUAL 07/05/2015 [facility] URINALYSIS POC CK CREATINE KINASE ISBMET BASIC METABOLIC PANEL POCT 07/05/2015 PHENY PHENYTOIN LEVEL 07/05/2015 PREGP POC URINE TEST, QUAL 07/05/2015 [facility] URINALYSIS POC CK CREATINE KINASE ISBMET BASIC METABOLIC PANEL POCT 07/05/2015 PHENY PHENYTOIN LEVEL 07/05/2015 PREGP POC URINE TEST, QUAL 07/05/2015 [facility] URINALYSIS POC CK CREATINE KINASE ISBMET BASIC METABOLIC PANEL POCT 07/05/2015 PHENY PHENYTOIN LEVEL 07/05/2015 PREGP POC URINE TEST, QUAL 07/05/2015 [facility] URINALYSIS POC CK CREATINE KINASE ISBMET BASIC METABOLIC PANEL POCT 07/05/2015 PHENY PHENYTOIN LEVEL 07/05/2015 PREGP POC URINE TEST, QUAL 07/05/2015 [facility] URINALYSIS POC ABC CBC WO DIFF 2015 ALC ALCOHOL 07/16/2015 CMETPP COMPREHENSIVE METABOLIC PANEL 07/16/2015 [facility] DRUG SCREEN URINE 07/16/2015 PHENY PHENYTOIN LEVEL 07/16/2015 PL PROLACTIN 2015 ABC CBC WO DIFF 2015 ALC ALCOHOL 07/17/2015 CMETPP COMPREHENSIVE METABOLIC PANEL 07/17/2015 [facility] DRUG SCREEN URINE 07/17/2015 PHENY PHENYTOIN LEVEL 07/17/2015 PL PROLACTIN 2015 PREGP POC URINE TEST, QUAL 07/17/2015 [facility] URINALYSIS POC ABC CBC WO DIFF 2015 ALC ALCOHOL 07/17/2015 CMETPP COMPREHENSIVE METABOLIC PANEL 07/17/2015 [facility] DRUG SCREEN URINE 07/17/2015 PHENY PHENYTOIN LEVEL 07/17/2015 PL PROLACTIN 2015 PREGP POC URINE TEST, QUAL 07/17/2015 [facility] URINALYSIS POC ABC CBC WO DIFF 2015 ALC ALCOHOL 07/17/2015 CMETPP COMPREHENSIVE METABOLIC PANEL 07/17/2015 [facility] DRUG SCREEN URINE 07/17/2015 PHENY PHENYTOIN LEVEL 07/17/2015 PL PROLACTIN 2015 PREGP POC URINE TEST, QUAL 07/17/2015 [facility] URINALYSIS POC ABC CBC WO DIFF 2015 ALC ALCOHOL 07/17/2015 CMETPP COMPREHENSIVE METABOLIC PANEL 07/17/2015 [facility] DRUG SCREEN URINE 07/17/2015 PHENY PHENYTOIN LEVEL 07/17/2015 PL PROLACTIN 2015 PREGP POC URINE TEST, QUAL 07/17/2015 [facility] URINALYSIS POC ABC CBC WO DIFF 2015 ALC ALCOHOL 07/17/2015 CMETPP COMPREHENSIVE METABOLIC PANEL 07/17/2015 [facility] DRUG SCREEN URINE 07/17/2015 PHENY PHENYTOIN LEVEL 07/17/2015 PL PROLACTIN 2015 PREGP POC URINE TEST, QUAL 07/17/2015 [facility] URINALYSIS POC ABC CBC WO DIFF 2015 ALC ALCOHOL 07/17/2015 CMETPP COMPREHENSIVE METABOLIC PANEL 07/17/2015 DGABU DRUG SCREEN URINE 07/17/2015 PHENY PHENYTOIN LEVEL 07/17/2015 PL PROLACTIN 2015 PREGP POC URINE TEST, QUAL 07/17/2015 UAPOC URINALYSIS POC CBC CBC WITH DIFF 09/07 CMETPP COMPREHENSIVE METABOLIC PANEL 09/08/2015 LIPRLX LIPID PANEL W/REFLEX LDL 09/08/2015 TSHR TSH WITH REFLEX TO FREE T4 09/08/2015 UACR URINALYSIS REFLEX TO CULTURE 09/08/2015 UCULT URINE CULTURE 09/2015 PREGS TEST, QUAL, SERUM 10/02/2015 UACR URINALYSIS REFLEX TO CULTURE 11/26/2015 Encounters ACCT No. Visit Date/Time Discharge Status Pt. Type Provider Facility Loc./Unit Complaint [id number] 09/19/2013 09:44:00 09/19/2013 23: 59:59 CLS Outpatient TAN CHEW [id number] 08/16/2013 16:12:00 08/16/2013 23: 59:59 CLS Outpatient POOJA EASTMAN [id number] 03/15/2013 14:54:00 03/15/2013 23: 59:59 CLS Outpatient STEVE SPENCER MD [id number] 02/11/2014 20:47:00 2013 21:47:00 DIS Emergency Katherine JAMES, [facility] [place]EDMaggy [id number] 07/22/2012 23:23:00 2012 00:33:00 DIS Emergency Katherine JAMES, [facility] W.EDP [id number] 03/03/2014 17:01:31 03/03/2014 23: 59:59 CLS Outpatient Hadley Urrutia [id number] 12/18/2015 07:44:24 12/18/2015 23:59:00 DIS Outpatient SOUMYA [facility] [id number] 12/01/2015 23:59:00 12/01/2015 23:59:00 [id number] 11/26/2015 19:09:49 11/26/2015 23:59:00 DIS Outpatient ZACKARY MORENO [facility] [id number] 10/02/2015 15:03:45 10/02/2015 23:59:00 DIS Outpatient ZACKARY MORENO [facility] [id number] 09/08/2015 16:16:15 09/08/2015 23:59:00 DIS Outpatient ZACKARY MORENO [facility] [id number] 09/05/2015 16:08:00 09/05/2015 23:59:59 CLS Emergency [facility] FED [id number] 07/16/2015 22:44:00 07/17/2015 02:12:00 DIS Emergency CHARIS QUARLES [facility] FED [id number] 07/05/2015 21:42:00 07/05/2015 23:13:00 DIS Emergency ANNIE GUAJARDO [facility] FED [id number] 07/01/2015 18:10:00 07/01/2015 19:18:00 DIS Emergency GIOVANI MARIN [facility] FED [id number] 06/17/2015 23:30:00 06/18/2015 08:01:00 DIS Emergency KAMLESH LANDRYAKMaggy [facility] FED [id number] 05/24/2015 15:05:00 05/24/2015 17:07:00 DIS Emergency SHAKIRA CHRISTINE [facility] FED [id number] 01/28/2015 21:27:00 01/29/2015 00:57:00 DIS Emergency GRIS [facility] FED [id number] 01/24/2015 22:50:00 01/25/2015 01:45:00 DIS Emergency SOLIS MORLAEZ [facility] FED [id number] 01/20/2015 19:19:00 01/20/2015 21:22:00 DIS Emergency ANNI HILL [facility] FED [id number] 01/15/2015 22:47:00 01/16/2015 01:03:00 DIS Emergency NAOMY, SOLIS G [facility] FED [id number] 01/08/2015 22:30:00 01/09/2015 04:04:00 DIS Emergency JEOVANNY LOERA [facility] FED [id number] 12/29/2014 10:19:00 12/29/2014 11:34:00 DIS Emergency [facility] FED [id number] 10/07/2014 22:08:22 10/07/2014 23:59:00 DIS Outpatient LIVE EDWARDS MD [facility] FLBOPS [id number] 09/21/2014 01:48:20 09/21/2014 03:42:00 DIS Emergency CARLO LANDRY [facility] FED [id number] 11/13/2015 00:00:00 11/13/2015 23:59:59 CLS Outpatient [facility] [place] [id number] 11/07/2015 10:25:43 11/07/2015 23:59:59 CLS Outpatient [facility] [place] [id number] 11/05/2015 00:00:00 11/05/2015 23:59:59 CLS Outpatient [facility] [place] [id number] 12/01/2016 10:56:32 Document Registration [id number] 07/08/2016 12:53:03 2016 23:59:59 CLS Outpatient AL MUNOZ [place] [facility] [id number] 06/28/2016 08:55:01 2016 23:59:59 [facility] [place] [facility] [id number] 05/13/2016 08:59:49 2015 23:59:59 [facility] [place] [facility]MIN[facility] [id number] 05/06/2016 08:33:07 2015 23:59:59 [facility] [place] [facility]MIN[facility] [id number] 04/26/2016 12:36:02 2015 23:59:59 CLS Outpatient AL MUNOZ [place] F[facility]MINISTR[facility] [id number] 04/19/2016 16:35:14 2015 23:59:59 CLS Outpatient [place] [facility]MIN[facility] [id number] 04/19/2016 11:40:19 2015 23:59:59 [facility] FACILITY ADMINISTRATOR [facility] [id number] 04/05/2016 13:35:30 2015 23:59:59 [facility] FACILITY ADMINISTR[facility] [id number] 03/17/2016 09:10:19 2015 23:59:59 [facility] FACILITY ADMINISTR[facility] [id number] 03/15/2016 12:50:48 2015 23:59:59 [facility] Outpatient [place] [facility]MINIST[facility] [id number] 02/06/2016 09:32:29 2015 23:59:59 [facility] FACILITY ADMINISTRATOR [facility] [id number] 01/02/2016 14:49:40 2015 23:59:59 [facility] FACILITY ADMINISTR[facility] [id number] 01/02/2016 14:49:21 2015 23:59:59 [facility] Outpatient [place] [facility]MINIST[facility] [id number] 11/28/2015 09:33:12 2015 23:59:59 [facility] FACILITY ADMINISTRATOR [facility] [id number] 10/30/2015 10:46:20 2015 23:59:59 [facility] Outpatient [place] [facility]MIN[facility] [id number] 10/30/2015 10:01:42 2015 23:59:59 [facility] Outpatient AL MCDANIEL [place] [facility]MINIST[facility] [id number] 10/14/2015 12:58:40 2015 23:59:59 [facility] Outpatient [place] [facility] [id number] 04/26/2016 09:34:33 Document Registration [id number] 12/01/2016 10:56:32 12/01/2016 23:59:59 [facility] Outpatient [facility] [id number] 09/11/2016 15:29:29 09/11/2016 23:59:59 CLS Outpatient [facility] Family Medicine and [facility] [id number] 05/18/2016 00:00:00 05/18/2016 23:59:59 CLS Outpatient [facility] [place] [id number] 01/01/2016 00:00:00 01/01/2016 23:59:59 CLS Outpatient [facility] [place] [id number] 12/12/2015 00:00:00 12/12/2015 23:59:59 CLS Outpatient [facility] [place] [id number] 01/18/2017 16:04:41 2016 16:25:00 DIS Inpatient TIGRE KIRIT [facility] [id number] 11/11/2016 10:18:49 2016 23:59:59 [facility] Outpatient [facility] 823 [id number] 11/11/2016 09:51:00 2016 23:59:59 [facility] Outpatient KEVINANAND [facility] 823 [id number] 08/13/2016 08:09:52 2016 23:59:59 [facility] Outpatient [facility] 901 [id number] 05/21/2016 16:52:12 2015 23:59:00 [facility] [id number] 05/16/2016 21:27:00 2015 16:18:00 DIS Inpatient Shai WALKER [address] [id number] 05/03/2016 14:16:00 2015 16:13:00 DIS Outpatient Shai WALKER [address] [id number] 04/24/2016 10:33:00 2015 12:20:00 DIS Outpatient Shai WALKER [address] [id number] 04/12/2016 15:39:00 2015 14:10:00 [facility] [address] [id number] 03/24/2016 12:41:00 2015 13:35:00 DIS Outpatient Shai WALKER [facility] [id number] 01/14/2016 22:22:00 2015 23:25:00 DIS Outpatient Shai WALKER [facility] [id number] 11/10/2015 20:00:51 2015 21:25:00 DIS Emergency LESLEYABIGAILEMMIE [facility] [id number] 10/21/2015 09:07:53 2015 13:20:00 DIS Emergency ALFREDA BUSBY [facility] [id number] 09/21/2015 17:07:07 2015 20:47:00 DIS Emergency Amirah LION [facility] [id number] 08/25/2015 16:14:20 2015 19:31:00 DIS Emergency LEIA RITCHIE [facility] [id number] 08/07/2015 23:20:48 2015 03:01:00 DIS Emergency POONAM JASMINE Gianna [facility] [id number] 08/04/2015 17:20:36 2015 16:24:00 DIS Inpatient ABNER ESCUDERO [address] [id number] 05/24/2015 01:19:03 2014 07:17:00 DIS Emergency GRAZYNA EFFIE L [facility] [id number] 05/22/2015 21:47:30 2014 02:07:00 DIS Emergency GRAZYNADAVIDY L [facility] [id number] 04/21/2016 12:51:42 Document Registration [id number] 03/15/2016 18:29:51 Document Registration [id number] 10/30/2015 12:00:02 Document Registration [id number] 08/11/2015 09:35:20 Document Registration [id number] 08/07/2015 13:46:06 Document Registration [id number] 05/22/2015 22:00:56 Document Registration [id number] 02/20/2015 11:15:11 Document Registration [id number] 02/14/2015 10:09:21 Document Registration [id number] 07/28/2014 23:14:00 Document Registration
--- NOTE | 2017-03-10 16:11 | ED General ---
General Stated Complaint: RIGHT FOOT INJ Source of Information: Patient Exam Limitations: No Limitations History of Present Illness Time Seen by Provider: 16:10 Initial Comments To ER with reports of pain over the anterior and lateral aspect of the right foot that has been present for one week after she stubbed her toe causing her to excessively plantar flex her foot. She does bear weight on her foot and relating to room 9. Timing/Duration: 1 Week Severity: Moderate Allergies and Home Medications Allergies Coded Allergies: citric acid (Verified Allergy, Mild, 03/10/17) latex (Verified Allergy, Mild, 03/10/17) Home Medications Albuterol Sulfate 1.25 Mg/3 Ml Vial.neb, 1.25 MG IH, (Reported) Citalopram Hydrobromide 20 Mg Tablet, Unknown Dose PO, (Reported) Lamotrigine 100 Mg Tablet, Unknown Dose PO, (Reported) [Iron Pill] , Unknown Dose, (Reported) Constitutional: see HPI EENTM: see HPI Respiratory: no symptoms reported Cardiovascular: no symptoms reported Genitourinary: no symptoms reported Musculoskeletal: see HPI Skin: no symptoms reported Psychiatric/Neurological: No Symptoms Reported Past Wcjzbul-Okwhqq-Xltxtj Hx Patient Social History Recent Foreign Travel: No Contact w/Someone Who Travel: No Physical Exam Vital Signs Vital Sign - Last 12Hours 03/10/17 16:00 Temp 97.8 Pulse 79 Resp 18 B/P (MAP) 133/91 Pulse Ox 97 Capillary Refill : General Appearance: No Apparent Distress, WD/WN Eyes: Bilateral Eye Normal Inspection, Bilateral Eye PERRL, Bilateral Eye EOMI HEENT: PERRL/EOMI, TMs Normal Neck: Full Range of Motion, Normal Inspection Respiratory: No Accessory Muscle Use, No Respiratory Distress Cardiovascular: Regular Rate, Rhythm, Normal Peripheral Pulses Gastrointestinal: Normal Bowel Sounds, Non Tender, Soft Extremity: Normal Capillary Refill, Normal Inspection, Other ( no swelling ecchymosis bruising or deformity) Neurologic/Psychiatric: Alert, Oriented x3, No Motor/Sensory Deficits Progress/Results/Core Measures Results/Orders My Orders Orders - FAWN ROSARIO APRN Foot, Right, 2 View (03/10/17 16:08) Ankle, Right, 3 Views (03/10/17 16:08) Vital Signs/I&O Vital Sign - Last 12Hours 03/10/17 16:00 Temp 97.8 Pulse 79 Resp 18 B/P (MAP) 133/91 Pulse Ox 97 Departure Impression Impression: Primary Impression: Sprain and strain of foot Disposition: 01 HOME, SELF-CARE Condition: Stable Departure-Patient Inst. Decision time for Depature: 16:31 Referrals: NO,LOCAL PHYSICIAN (PCP) Primary Care Physician Patient Instructions: Ankle Sprain Add. Discharge Instructions: 1. Tylenol and Motrin for pain 2. Return to ER for any concerns 3. Work/School Note: Work Release Form Date Seen in the Emergency Department: Mar 10, 2017 Return to Work: Mar 11, 2017 FAWN ROSARIO APRN Mar 10, 2017 16:11
[2017-03-10] MEDS ORDERED: CITA20TA12 PO (16:23)
[2017-03-10] MEDS ORDERED: ALBU1.25 IH (16:23)
[2017-03-10] MEDS ORDERED: IRON PILL (16:23)
[2017-03-10] MEDS ORDERED: LAMO100T69 PO (16:23)
--- NOTE | 2017-03-10 16:46 | Diagnostic Imaging Report ---
Three views of the right foot. INDICATION: Injury. FINDINGS: No fracture, dislocation, or radiopaque foreign body is seen. Joint alignment is satisfactory. IMPRESSION: Unremarkable exam. Dictated by: Dictated on workstation # [id number]
--- NOTE | 2017-03-10 16:46 | Diagnostic Imaging Report ---
EXAMINATION: Three views of the right ankle. INDICATION: Injury. FINDINGS: No fracture, dislocation, or radiopaque foreign body. IMPRESSION: Unremarkable exam. Dictated by: Dictated on workstation # [id number]
[2017-03-10 16:54] VITALS: BP 123/71
== END 2017-03-10 16:54 | disposition home or self-care (01) ==
LOC: ER 15:33
DX: S93.601A Unspecified sprain of right foot, initial encounter (principal); S96.911A Strain of unspecified muscle and tendon at ankle and foot level, right foot, initial encounter; W22.09XA Striking against other stationary object, initial encounter
CPT/HCPCS: 73610; 73620; 99283